=== PATIENT | male | born 2000 | race American Indian/Alaskan Native ===

== ENCOUNTER 2024-09-01 19:33 | Emergency (ER) | payer OTHER ==
[~2024-09-01] VITALS: Ht 172.7 cm; Wt 90.7 kg
[2024-09-01] MEDS ORDERED: DOXYCYCLINE HYCLATE IV ONE (20:15)
[2024-09-01] MEDS ORDERED: FAMOtidine 10 MG/ML (4ML VIAL) IV ONE (20:15)
[2024-09-01 20:40] LABS: BASO % 0.5 % (0.1-1.2); EOS # 0.46 (0.04-0.54); EOS % 4.9 % (0.7-7.0); LYMPH # 2.51 (1.18-3.74); LYMPH % 27.0 % (19.3-53.1); MEAN PLATELET VOLUME 9.00 fl (9.4-12.4); MONO # 0.73 (0.24-0.82); MONO % 7.8 % (4.7-12.5); NEUT # 5.53 (1.56-6.13); NEUT % 59.5 % (34.0-71.1); RED CELL DISTRIBUTION WIDTH 12.2 % (11.6-14.4)
[2024-09-01 20:46] LABS: INR 1.05
[2024-09-01 20:51] LABS: ALT/SGPT 34.0 U/L (12-78); AST/SGOT 17.0 U/L (15-37); BILIRUBIN TOTAL 0.31 mg/dL (0.3-1.2); BUN CREA RATIO 12.0 (7.0-25.0); CREATININE SERUM 0.94 mg/dL (0.70-1.30); GFR 97.01; GLOBULINA 4.6 G/DL (2.4-3.5); GLUCOSE FASTING 91.0 mg/dL (65-100); OSMOLALITY SERUM 280.0 MOSM/KG (275-295)
[2024-09-01 21:01] LABS: ERYTHROCYTE SEDIMENTATION RATE 30 mm/hr (0-15)
== END 2024-09-02 08:22 | disposition home or self-care (01) ==
LOC: ER 19:33
PROVIDERS: General Practice
DX: L08.9 Local infection of the skin and subcutaneous tissue, unspecified (principal)